=== PATIENT | male | born 1985 | race Hispanic/Latino ===

== ENCOUNTER 2017-04-28 23:55 | Emergency (ER) | payer BC, SELFPAY ==
[2017-04-29] MEDS ORDERED: Lidocaine 1% PF 5 ML VIAL ONE (03:40)
[2017-04-29] MEDS ORDERED: cefTRIAXone\\ROCEPHIN 250 MG VIAL ONE (03:40)
[2017-04-29 04:01] LABS: Bilirubin Negative (Negative); Blood, Urine Negative (Negative); Glucose, Urine (Dipstick) Negative (Negative); Ketone, Urine Negative (Negative); Nitrite Positive (Negative); Protein, Urine (Dipstick) 30 mg/dL (Neg-Trace)
[2017-04-29 04:04] LABS: Bacteria/HPF Rare-Few HPF (None Seen); Hyaline Casts/LPF 0-3 HYALINE CAST LPF (0-3 Hyaline); Squamous Epithelial None Seen HPF (0-3)
--- NOTE | 2017-04-29 09:03 | ULT ---
PRELIMINARY REPORT/[facility]/EMERGENCY AFTER HOURS PROCEDURE: EXAM: US Scrotum CLINICAL HISTORY: 32 years old, male; Pain; Other: Rt test pain x 2-3 days TECHNIQUE: Real-time ultrasound of the scrotum with color Doppler and image documentation. COMPARISON: No relevant prior studies available. FINDINGS: Right testicle: There is bilateral testicular microlithiasis. The RIGHT testicle measures 4.9 x 2.7 x 2.9 cm. No torsion. Left testicle: LEFT testicle measures 4.8 x 2.4 x 2.9 cm. Epididymides: There is RIGHT epididymal enlargement with increased vascular flow compatible with acut e epididymitis. There is a 5 mm LEFT epididymal cyst. Scrotum: There is a small RIGHT hydrocele. There is a small LEFT hydrocele. There is no varicocele on either side. IMPRESSION: 1. There is RIGHT epididymal enlargement with increased vascular flow compatible with acute epididymi tis. 2. There is bilateral testicular microlithiasis. Followup or further evaluation for this finding at l ocal radiologist's discretion. EXAM: US Duplex Arterial/Venous of the Scrotum, Complete EXAM DATE/TIME: Exam ordered 04/29/2017 12:43 AM CLINICAL HISTORY: 32 years old, male; Pain; Other: Rt test pain x 2-3 days TECHNIQUE: Real-time duplex ultrasound scan of the arterial and venous flow of the scrotal contents with color D oppler flow and spectral waveform analysis. COMPARISON: No relevant prior studies available. FINDINGS: Right testicle: RIGHT testicular artery peak systolic loss and measures approximately 12 cm/s. Normal venous waveform. Normal blood flow. Left testicle: LEFT testicular artery peak systolic velocity measures approximately 9 cm/s. Normal ve nous waveform. Normal blood flow. IMPRESSION: No evidence of testicular torsion. Thank you for allowing us to participate in the care of your patient. Dictated and Authenticated by: Leroy Garcia MD 04/29/2017 1:27 AM Central Time ([place] & [place]) FINAL REPORT SCROTAL SONOGRAM: DATE: 04/29/17. TIME: 0055 hours. HISTORY: Right scrotal pain for 3 days. FINDINGS: The findings agree with the preliminary report from [facility]. There is no evidence of testi cular mass or torsion. Inflammation of the right epididymis suggests right epididymal orchitis. Rosie ticular microlithiasis is observed. Please consider urologic consultation and periodic sonographic f ollowup. POS: MICHELLE
== END 2017-04-29 04:45 | disposition home or self-care (01) ==
LOC: ERS 23:55
DX: N45.1 Epididymitis (principal); F17.290 Nicotine dependence, other tobacco product, uncomplicated
CPT/HCPCS: 76870; 81003; 81015; 87086; 87491; 87591; 93976; 96372; 99406; J0696; J2001

== ENCOUNTER 2019-07-13 18:30 | Emergency (ER) | payer BC, SELFPAY ==
[2019-07-13] MEDS ORDERED: Bacitracin 1 PK ONE (19:25)
[2019-07-13] MEDS ORDERED: Bupivacaine 0.5% 10 ML VIAL ONE (19:25)
[2019-07-13] MEDS ORDERED: Lidocaine 1% (PF) 30 ML VIAL ONE (19:25)
== END 2019-07-13 20:06 | disposition home or self-care (01) ==
LOC: ERS 18:30
DX: S61.212A Laceration without foreign body of right middle finger without damage to nail, initial encounter (principal); F17.290 Nicotine dependence, other tobacco product, uncomplicated; W45.8XXA Other foreign body or object entering through skin, initial encounter
CPT/HCPCS: 12002; J2001; J3490

== ENCOUNTER 2019-07-25 21:52 | Emergency (ER) | payer SELFPAY | END 2019-07-25 23:09 | disposition home or self-care (01) | LOC: ERS 21:52 | DX: S61.212D Laceration without foreign body of right middle finger without damage to nail, subsequent encounter (principal); F17.290 Nicotine dependence, other tobacco product, uncomplicated; X58.XXXD Exposure to other specified factors, subsequent encounter ==

== ENCOUNTER 2021-01-14 08:48 | Emergency (ER) | payer SELFPAY | END 2021-01-14 09:30 | disposition home or self-care (01) | LOC: ERS 08:48 | DX: L25.9 Unspecified contact dermatitis, unspecified cause (principal); F17.210 Nicotine dependence, cigarettes, uncomplicated | CPT/HCPCS: 99282 ==

== ENCOUNTER 2022-06-14 11:13 | Emergency (ER) | payer SELFPAY ==
[2022-06-14] MEDS ORDERED: predniSONE 20 MG TAB ONE (12:00)
[2022-06-14] MEDS ORDERED: diphenhydrAMINE 25 MG CAP ONE (12:00)
[2022-06-14] MEDS ORDERED: Famotidine 20 MG TAB ONE (12:00)
== END 2022-06-14 12:29 | disposition home or self-care (01) ==
LOC: ERS 11:13
DX: L50.0 Allergic urticaria (principal); Z87.891 Personal history of nicotine dependence
CPT/HCPCS: 99282; J7512